=== PATIENT | male | born 1945 | race Caucasian/White ===

== ENCOUNTER 2017-01-21 05:28 | Day surgery (SDC) | payer MEDICARE ==
[2017-01-14 10:00] LABS: HEMATOCRIT 40.1 % (37.9-51.0); HEMOGLOBIN 13.6 g/dL (13.5-17.0); HGB HCT DIFFERENCE 0.7; MEAN CORPUSCULAR HEMOGLOBIN 29.3 pg (27.0-33.4); MEAN CORPUSCULAR VOLUME 86 fl (80-97); RED BLOOD COUNT 4.65 10^6/uL (4.35-5.55); RED CELL DISTRIBUTION WIDTH 14.9 % (11.5-14.0); WHITE BLOOD COUNT 7.2 10^3/uL (4.0-10.5)
[~2017-01-21 05:28] MED LIST: CEFAZOLIN 1 GM/D5W RTU 1 GM/50 ML RTUPB IV PRN; DEXTROSE 5%-LACTATED RINGERS 1,000 ML IV PRN
[2017-01-21] MEDS ORDERED: LIDOCAINE 1% INJ-PF (10 MG/ML) 30 ML SDV ONE (06:39)
[2017-01-21] MEDS ORDERED: KETAMINE HCL INJ 500 MG/10 ML VIAL ONE (07:05)
[2017-01-21] MEDS ORDERED: MIDAZOLAM 2 MG/2 ML INJ ONE (07:06)
[2017-01-21] MEDS ORDERED: FENTANYL CITRATE INJ/PF 100 MCG/2 ML AMPUL ONE (07:06)
[2017-01-21] MEDS ORDERED: PROPOFOL INJ 200 MG/20 ML VIAL IV ONE (07:07)
[2017-01-21] MEDS ORDERED: MORPHINE SULFATE 10 MG/ML INJ IV PRN (07:35)
[2017-01-21] MEDS ORDERED: FENTANYL CITRATE INJ/PF 100 MCG/2 ML AMPUL IV PRN ×3 (07:35)
[2017-01-21] MEDS ORDERED: OXYCODONE-ACETAMINOPHEN 5-325 MG TABLET PO PRN ×3 (07:35→08:09)
[2017-01-21] MEDS ORDERED: MEPERIDINE HCL/PF INJ 25 MG/1 ML DISP.SYRIN IV PRN (07:35)
[2017-01-21] MEDS ORDERED: DIPHENHYDRAMINE HCL 50 MG/ML VIAL IV PRN (07:35)
[2017-01-21] MEDS ORDERED: PROMETHAZINE HCL INJ 25 MG/1 ML VIAL IV PRN ×2 (07:35)
[2017-01-21] MEDS ORDERED: ONDANSETRON HCL INJ/PF 4 MG/2 ML SDV IV PRN (08:09)
--- NOTE | 2017-01-21 08:20 | Operative Report ---
Operative Report DATE OF SURGERY: 01/21/17 PREOPERATIVE DIAGNOSIS: Large left lower back mass POSTOPERATIVE DIAGNOSIS: Same consistent with massive sebaceous cyst OPERATION: Complete excision of left lower back sebaceous cyst, closure over drain SURGEON: GORDO ANDRADE 1ST EMERGENCY DEPARTMENT COORDINATOR: KAREN JOVEL ANESTHESIA: LMAC TISSUE REMOVED OR ALTERED: Lower back sebaceous cyst and contents COMPLICATIONS: None ESTIMATED BLOOD LOSS: scant INTRAOPERATIVE FINDINGS: See below PROCEDURE: The patient was taken from the preoperative holding area to the main operating room where L Lee anesthesia was induced. He was placed in the right lateral decubitus position left side up. The left posterior lateral flank mass is exposed, prepped and draped in sterile fashion. Surgical plan on surgical time out conducted. The mass was anesthetized 1% lidocaine plain. Mass was approximately 10 cm in diameter. It was confined and subcutaneous tissue. A 5 cm long horizontally oriented skin incision was made. We immediately got into the mass which was a massive sebaceous cyst. All of the cyst contents were evacuated. We then remove the entire cyst lining of sharp and electrocautery dissection. The cyst lining came out a piece fashion. Cyst contents shell were all disposed of. There was no suggestion of malignancy. Stasis was achieved, a large Simone drain was brought through the left lateral skin edge, trimmed appropriately, the skin with 2-0 Prolene suture. Wound closed in layers with 2-0 Vicryl, 4 Ethilon suture. Again the cavity closed was approximately 10 cm x 10 cm x 4 cm in depth. Sterile dressing was applied. He tolerated the procedure well. He was taken to recovery in stable condition. The physician assistant commissioner, Ms. Jovel, provided assistance during this case by: retracting tissue, instillation of local anesthesia and closure of skin incisions.
--- NOTE | 2017-01-21 08:22 | PDOC DISCHARGE SUMMARY ---
Discharge Summary (SDC) - Discharge Final Diagnosis: Sebaceous cyst of lower back Date of Surgery: 01/21/17 Discharge Date: 01/21/17 Condition: Good Treatment or Instructions: Patient instructed on drain care; change dressing when necessary; returned [facility] to follow up with team in approximately 1 week. Prescription provided. Patient may shower. Discharge Diet: As Tolerated Discharge Activity: Activity As Tolerated, No Lifting Over 10 Pounds, No Lifting /Push/Pulling Home Care Assistance: None Needed Report the Following to Your Physician Immediately: Shortness of Breath, Increase in Pain, Fever over 101 Degrees
[2017-01-21 10:14] VITALS: BP 139/76
== END 2017-01-21 09:55 | disposition home or self-care (01) ==
LOC: OROUT 05:28
PROVIDERS: ATTEND Surgery
PROC: 0JB70ZZ Excision of Back Subcutaneous Tissue and Fascia, Open Approach (ICD-10-PCS; 2017-01-21)
PROC: 0JQ70ZZ Repair Back Subcutaneous Tissue and Fascia, Open Approach (ICD-10-PCS; principal; 2017-01-21 07:30)
DX: L72.3 Sebaceous cyst (principal); I10 Essential (primary) hypertension; E11.9 Type 2 diabetes mellitus without complications; M19.90 Unspecified osteoarthritis, unspecified site; E66.9 Obesity, unspecified; Z85.46 Personal history of malignant neoplasm of prostate; I25.2 Old myocardial infarction; Z87.891 Personal history of nicotine dependence; Z79.84 Long term (current) use of oral hypoglycemic drugs; Z68.30 Body mass index [BMI] 30.0-30.9, adult
CPT/HCPCS: 36415; 82962; 85027; 11406; 12034; J2250; J0690; J3010; J3490 ×2; A9270; J2704; 300

== ENCOUNTER 2017-10-01 11:15 | Day surgery (SDC) | payer MEDICARE ==
[~2017-10-01 11:15] MED LIST changes: -CEFAZOLIN 1 GM/D5W RTU 1 GM/50 ML RTUPB IV PRN; +CHONDR SU A NA/HYALUR INTRAOC KIT (SURGICARE) ONE; -DEXTROSE 5%-LACTATED RINGERS 1,000 ML IV PRN; +KETOROLAC TROMETHAMINE 0.45% 4 DROP/0.4 ML DROPERETTE OS PRN; +LIDOCAINE 1% INJ-PF (10 MG/ML) 30 ML SDV ONE; +PHENYLEPHRINE/KETOROLAC 1%-0.3% 4 ML VIAL ONE
[2017-10-01] MEDS: TROPICAMIDE 1% OPH SOLN 3 ML OS PRN ×3 (11:41→12:01)
[2017-10-01] MEDS: BESIFLOXACIN HCL 0.6% OPH SUSP 5 ML BOTTLE OS PRN ×3 (11:41→12:41)
[2017-10-01] MEDS: CYCLOPENTOLATE 0.2%/PHENYLEPHRINE 1% OPH SOLN 2 ML OS PRN ×3 (11:41→12:01)
[2017-10-01] MEDS: TETRACAINE HCL 0.5% OPH SOLN 2 ML OS PRN ×3 (11:42→12:16)
[2017-10-01] MEDS ORDERED: MIDAZOLAM 2 MG/2 ML INJ ONE (12:02)
[2017-10-01] MEDS ORDERED: FENTANYL CITRATE INJ/PF 100 MCG/2 ML AMPUL ONE (12:03)
--- NOTE | 2017-10-01 19:14 | [facility] OPERATIVE REPORT E ---
[facility] Operative Report NAME: MARIPOSA AQUINO AGE: 72Y DATE OF SURGERY: 10/01/2017 ROOM: PREOPERATIVE DIAGNOSIS: CATARACT, LEFT EYE. POSTOPERATIVE DIAGNOSIS: CATARACT, LEFT EYE. OPERATION: Cataract extraction with intraocular lens implant of the left eye. SURGEON: SANAM BRONSON M.D. ANESTHESIA: Topical. PROCEDURE: After obtaining appropriate consent, the patient's @ eye was prepped and draped in sterile fashion as well as the surgeon in a sterile manner and cataract surgery was started. First a paracentesis blade was used to make a small side-port incision. Viscoelastic was used to inflate the anterior chamber. Next a 2.4 mm incision was made with the paracentesis blade. A continuous capsulorrhexis incision was made using a cystotome and Utrata forceps. Following this hydrodissection was carried out to make the lens fully loose and mobile and it was rotated 90 degrees. Following this, a vuygci-qtm-folxljp technique was used to phacoemulsify the lens with a CDE of 11.09. The remaining cortex was removed with irrigation/aspiration. Provisc was instilled into the capsular bag to inflate the bag. A SN60WF, 20.5 diopter lens was placed. The remaining viscoelastic material was removed with irrigation/aspiration. Following this, a 10-0 nylon suture was used to close the incision and it was found to be watertight. Vigamox was instilled in the eye and a protective shield was placed over the eye. The patient returned to the postoperative recovery in stable condition. DICTATING PHYSICIAN: SANAM BRONSON M.D. [id number] PHY#: [id number] ID: [id number] JOB#: [id number] ACCT: [id number] cc:SANAM BRONSON M.D. >
--- NOTE | 2017-10-01 19:14 | [facility] DISCHARGE SUMMARY E ---
[facility] Discharge Summary NAME: MARIPOSA AQUINO AGE: 72Y ADMITTED: 10/01/2017 DISCHARGED: 10/01/2017 HOSPITAL COURSE: This is a 72-year-old patient who underwent cataract extraction of the left eye. DIAGNOSIS: CATARACT, LEFT EYE. He underwent surgery because he was having difficulty driving at night second to increased glare from headlights. DISCHARGE INSTRUCTIONS: He should be on a regular diet. No bending at his waist, no heavy lifting. He should use Besivance, Ilevro, and Durezol at 3 p.m. and 8 p.m. and sleep with a rigid shield. I will see him for his 1 day postoperative tomorrow. DICTATING PHYSICIAN: SANAM BRONSON M.D. [id number] PHY#: [id number] ID: [id number] JOB#: [id number] ACCT: [id number] cc:SANAM BRONSON M.D. >
== END 2017-10-01 13:37 | disposition home or self-care (01) ==
LOC: SC 11:15
PROVIDERS: ATTEND Internal Medicine
PROC: 08RK3JZ Replacement of Left Lens with Synthetic Substitute, Percutaneous Approach (ICD-10-PCS; principal; 2017-10-01 13:00)
DX: H25.812 Combined forms of age-related cataract, left eye (principal); H57.03 Miosis
CPT/HCPCS: 66984; 82962; V2632; J2250; J3490 ×2; A9270; J3010; C9447; 142

== ENCOUNTER 2017-10-29 06:13 | Day surgery (SDC) | payer MEDICARE ==
[~2017-10-29 06:13] MED LIST changes: -CHONDR SU A NA/HYALUR INTRAOC KIT (SURGICARE) ONE; +KETOROLAC TROMETHAMINE 0.45% 4 DROP/0.4 ML DROPERETTE OD PRN; -KETOROLAC TROMETHAMINE 0.45% 4 DROP/0.4 ML DROPERETTE OS PRN; -LIDOCAINE 1% INJ-PF (10 MG/ML) 30 ML SDV ONE; -PHENYLEPHRINE/KETOROLAC 1%-0.3% 4 ML VIAL ONE
[2017-10-29] MEDS: TROPICAMIDE 1% OPH SOLN 3 ML OD PRN ×3 (06:49→07:09)
[2017-10-29] MEDS: BESIFLOXACIN HCL 0.6% OPH SUSP 5 ML BOTTLE OD PRN ×3 (06:49→08:05)
[2017-10-29] MEDS: CYCLOPENTOLATE 0.2%/PHENYLEPHRINE 1% OPH SOLN 2 ML OD PRN ×3 (06:49→07:09)
[2017-10-29] MEDS: TETRACAINE HCL 0.5% OPH SOLN 2 ML OD PRN ×3 (06:50→07:43)
[2017-10-29] MEDS ORDERED: FENTANYL CITRATE INJ/PF 100 MCG/2 ML AMPUL ONE (07:00)
[2017-10-29] MEDS ORDERED: MIDAZOLAM 2 MG/2 ML INJ ONE (07:00)
[2017-10-29] MEDS ORDERED: EPINEPHRINE INJ/PF 1 MG/1 ML AMPULE ONE (07:07)
[2017-10-29] MEDS ORDERED: LIDOCAINE 1% INJ-PF (10 MG/ML) 30 ML SDV ONE (07:08)
[2017-10-29] MEDS ORDERED: CHONDR SU A NA/HYALUR INTRAOC KIT (SURGICARE) ONE (07:08)
--- NOTE | 2017-10-29 19:34 | [facility] OPERATIVE REPORT E ---
[facility] Operative Report NAME: MARIPOSA AQUINO AGE: 72Y DATE OF SURGERY: 10/29/2017 ROOM: PREOPERATIVE DIAGNOSIS: Cataract, right eye. POSTOPERATIVE DIAGNOSIS: Cataract, right eye. OPERATION: Cataract extraction with intraocular lens implant of the right eye. SURGEON: SANAM BRONSON M.D. ANESTHESIA: Topical. PROCEDURE: After obtaining appropriate consent, the patient's right eye was prepped and draped in sterile fashion as well as the surgeon in a sterile manner and cataract surgery was started. First a paracentesis blade was used to make a small side-port incision. Viscoelastic was used to inflate the anterior chamber. Next a 2.4 mm incision was made with the paracentesis blade. A continuous capsulorrhexis incision was made using a cystotome and Utrata forceps. Following this hydrodissection was carried out to make the lens fully loose and mobile and it was rotated 90 degrees. Following this, a crhtps-dpt-cfiizrh technique was used to phacoemulsify the lens with a CDE of 11.89. The remaining cortex was removed with irrigation/aspiration. Provisc was instilled into the capsular bag to inflate the bag. A SN60WF, 20.5 diopter lens was placed. The remaining viscoelastic material was removed with irrigation/aspiration. Following this, a 10-0 nylon suture was used to close the incision and it was found to be watertight. Vigamox was instilled in the eye and a protective shield was placed over the eye. The patient returned to the postoperative recovery in stable condition. DICTATING PHYSICIAN: SANAM BRONSON M.D. [id number] PHY#: [id number] ID: [id number] JOB#: [id number] ACCT: [id number] cc:SANAM BRONSON M.D. >
--- NOTE | 2017-10-29 19:34 | [facility] DISCHARGE SUMMARY E ---
[facility] Discharge Summary NAME: MARIPOSA AQUINO AGE: 72Y ADMITTED: 10/29/2017 DISCHARGED: 10/29/2017 HISTORY OF PRESENT ILLNESS AND HOSPITAL COURSE: This is a 72-year-old patient who underwent cataract extraction of the right eye. DIAGNOSIS: Cataract, right eye. HOSPITAL COURSE: The patient underwent surgery because he was having difficulty with blur from headlights at night. DISCHARGE INSTRUCTIONS: 1. He should be on a regular diet. 2. No bending at the waist and no heavy lifting. 3. He should use his Besivance, Ilevro, and Durezol at 3 p.m. and 8 p.m. and sleep with a rigid shield. 4. I will see him for his one-day postoperative tomorrow. DICTATING PHYSICIAN: SANAM BRONSON M.D. [id number] PHY#: [id number] ID: [id number] JOB#: [id number] ACCT: [id number] cc:SANAM BRONSON M.D. >
== END 2017-10-29 08:45 | disposition home or self-care (01) ==
LOC: SC 06:13
PROVIDERS: ATTEND Internal Medicine
PROC: 08RJ3JZ Replacement of Right Lens with Synthetic Substitute, Percutaneous Approach (ICD-10-PCS; principal; 2017-10-29 07:30)
DX: H25.811 Combined forms of age-related cataract, right eye (principal); Z96.1 Presence of intraocular lens; I10 Essential (primary) hypertension; E11.9 Type 2 diabetes mellitus without complications; I25.2 Old myocardial infarction; Z87.891 Personal history of nicotine dependence; Z79.82 Long term (current) use of aspirin
CPT/HCPCS: 66984; 82962; V2632; J2250; J3490 ×2; A9270; J0171; J3010; 142